=== PATIENT | male | born 1960 | race African-American/Black ===

== ENCOUNTER 2020-03-01 23:39 | Inpatient (IN) | payer MEDICAID, SELFPAY ==
[~2020-03-01] VITALS: Ht 185.4 cm; Wt 75.3 kg
[2020-03-01] MEDS ORDERED: SERT50TA PO (23:56)
[2020-03-01] MEDS ORDERED: geodon PO (23:56)
--- NOTE | 2020-03-02 00:25 | NUR ---
Pt BIB by RA[facility] frm [facility]. Pt is homeless and is currently in quarantine for being Covid19+ PUI, tested today no results yet. Pt brought in via gurney. Per paramedics, 911 was called because patient was short of breath. [facility] dmitriy reported low O2 saturation, but paramedics got 97% on RA. AO x 4. Verbally responsive. Visibly short of breath with RR: 24. Denies chest pain. Capillary refill <3. Noted with wet, non productive cough. No GI/ complaints. Ambulatory, steady gait, but expressing that he feels weak r/t his shortness of breath. Covid 19 Isolation, Fall and Safety precautions observed.
--- NOTE | 2020-03-02 00:26 | NUR ---
Dr. Gill at bedside for MSE.
[2020-03-02] MEDS ORDERED: ALBUTEROL SULFATE 8 GM HFA.AER.AD IH PRN (00:30)
[2020-03-02] MEDS ORDERED: NITROGLYCERIN 0.4 MG/TAB BOTTLE SL ONE ×2 (00:35→00:45)
[2020-03-02] MEDS ORDERED: FUROSEMIDE 40 MG/4 ML VIAL ONE (00:50)
[2020-03-02] MEDS ORDERED: FUROSEMIDE 40 MG/4 ML VIAL IV ONE (01:00)
[2020-03-02 01:01] LABS: *BILIRUBIN,URIN NEGATIVE (NEGATIVE); *COLOR,URINE YELLOW (YELLOW); *KETONES,URINE NEGATIVE (NEGATIVE); *UROBILINOGEN,URINE 0.2 E.U./dl (NORMAL); LEUKOCYTE ESTERASE ,URINE NEGATIVE (NEGATIVE); NITRITE, URINE NEGATIVE (NEGATIVE); PH,URINE 5.5 (5.0-8.0); UGLUCOSE NEGATIVE (NEGATIVE)
[2020-03-02 01:02] LABS: BASOPHILS % (AUTO) 0.6 % (0.0-2.0); EOSINOPHILS % (AUTO) 0.7 % (0.0-7.0); HEMATOCRIT 40.6 % (36.7-47.1); HEMOGLOBIN 13.5 g/dL (12.5-16.3); LYMPHOCYTES # (AUTO) 1.3 K/uL (20.0-40.0); LYMPHOCYTES % (AUTO) 18.8 % (20.5-51.5); MEAN CORPUSCULAR HEMOGLOBIN 25.9 uug (23.8-33.4); MEAN CORPUSCULAR HGB CONC 33 g/dL (32.5-36.3); MEAN CORPUSCULAR VOLUME 77.9 fL (73.0-96.2); MONOCYTES # (AUTO) 0.3 K/uL (2.0-10.0); MONOCYTES % (AUTO) 4.1 % (0.0-11.0); NEUTROPHILS # (AUTO) 5.2 K/uL (1.8-8.9); NEUTROPHILS % (AUTO) 75.8 % (38.5-71.5); PLATELET COUNT (AUTO) 322 K/uL (152-348); RED BLOOD CELL COUNT(AUTO) 5.21 MIL/uL (4.06-5.63); WHITE BLOOD COUNT (AUTO) 6.8 K/uL (3.6-10.2)
[2020-03-02 01:09] LABS: CREATININE 1.3 mg/dL (0.6-1.3); POTASSIUM 4.3 mmol/L (3.5-5.1)
[2020-03-02 01:15] LABS: *BLOOD, URINE TRACE (NEGATIVE); *CLARITY,URINE HAZY (CLEAR)
[2020-03-02 01:18] LABS: WBC,URINE 0-3 /HPF (0-3)
[2020-03-02 01:19] LABS: BACTERIA,URINE NONE SEEN /HPF (NONE SEEN); CALCIUM OXALATE CRYSTALS,UR MODERATE /HPF (NONE SEEN); SQUAMOUS EPITHELIAL CELL,UR FEW /HPF (NONE SEEN)
[2020-03-02 01:26] LABS: BILIRUBIN,TOTAL 0.4 mg/dL (0.2-1.0); TOTAL PROTEIN, SERUM 6.1 g/dL (6.4-8.2)
[2020-03-02] MEDS ORDERED: ASPIRIN 325 MG TABLET PO ONE (01:30)
[2020-03-02] MEDS ORDERED: NITROGLYCERIN OINT 1 GM PACKET TP ONE ×2 (01:30→01:37)
[2020-03-02] MEDS ORDERED: ASPIRIN 325 MG TABLET ONE (01:38)
--- NOTE | 2020-03-02 01:43 | NUR ---
Paged [facility] panel for admission. Waiting for Dr Mckeon construction or leak gang laborer for [facility] to call back.
--- NOTE | 2020-03-02 01:46 | NUR ---
Dr. Gill and Dr. Mckeon on panel call. Dr. Mckeon accepted patient to Tele Dx: CHF. Pt is also a PUI for COVID 19. Belongings list completed.
[2020-03-02] MEDS ORDERED: NITROGLYCERIN OINT 1 GM PACKET TP SCH (02:00)
[2020-03-02] MEDS ORDERED: Z GUARD REMEDY PASTE 57 GM TUBE TOP PRN (02:00)
[2020-03-02] MEDS ORDERED: ONDANSETRON 4 MG/2 ML VIAL IV PRN (02:00)
[2020-03-02] MEDS ORDERED: MAGNESIUM HYDROXIDE 30 ML LIQUID UDC PO PRN (02:00)
[2020-03-02 02:06] LABS: ABG PCO2 41.2 mmHg (35.0-45.0); ABG PH 7.383 (7.350-7.450); ABG PO2 67.2 mmHg (75.0-100.0); ABG SITE RIGHT RADIAL; ABG TOTAL HEMOGLOBIN 14.9 G/dL (13.5-18.0); COHb 1.9 % (0.5-1.5); MetHb 0.1 % (0.0-1.5); O2Hb 91.9 % (94.0-97.0); VENT MODE Nasal Cannula
[2020-03-02] MEDS ORDERED: ENOXAPARIN SODIUM 80 MG/0.8 ML DISP.SYRIN SQ ONE ×2 (02:15→02:29)
--- NOTE | 2020-03-02 02:51 | NUR ---
Pt will stay at ER until EPIC sees patient in the morning, per hospital protocols for PUI's. Provided patient with pillow and extra sheet. Offered to change patient's clothes, and provide hospital gown, but patient adamantly refused. Pt is currently semi harry's position, on O2 2LPM via NC and verbalized that he is comfortable. All due meds in ER given, and tolerated well. Pt with 1600cc amount of urine output. Pt will be kept on close monitoring at this time. Side rails up x 2. Bed locked in position. Safety/Fall/Covid [address]
--- NOTE | 2020-03-02 05:00 | NUR ---
Pt continues to sleep at this time, patient got up to urinate another 1000cc. VS and Tele monitoring continued. Latest BP: 145/98. NSR at this time, with occasional PVCs and bundle branch block. Remains at baseline cognitive level. Side rails up x 2. Changed patient into hospital gown, finally agreed to take shirt and shorts off. Kept his shoes/socks on and his boxer shorts. Also refused to replce his bedsheet. Gave patient a new blanket. No signs of distress. Will continue to monitor until ready to be moved in to room in AM.
--- NOTE | 2020-03-02 07:08 | NUR ---
Warm handoff given to Deisy QUINTERO.
--- NOTE | 2020-03-02 08:10 | NUR ---
transfered pt to floor in stable condition. hospital bf tray at bedside. vss. pt transfered with hospital covid-19 precautions.
[2020-03-02 08:34] VITALS: BP 143/101
[2020-03-02] MEDS ORDERED: FUROSEMIDE 40 MG/4 ML VIAL IV SCH (09:00)
[2020-03-02] MEDS: SERTRALINE HCL 50 MG TABLET PO SCH (09:25)
--- NOTE | 2020-03-02 10:10 | NUR ---
Patient admitted around 920am from ER in stable condition. Report given by LEON Olivas. Patient alert and oriented x4 under telemetry unit with EKG monitoring. no SOB noted. On heplock right forearm G20. DX: CHF, PUI. Patient afebrile 98.3"F, BP 142/101. cough once in a while noted. Patient is ambulatory. not in distress. Patient on pain management PRN. Complaint of left arm pain scale 8 out of 10. [place] PRN given. will continue monitor
[2020-03-02] MEDS: HYDROCODONE/APAP 5-325MG TABLET PO PRN (11:40)
[2020-03-02 12:00] VITALS: BP 137/93
[2020-03-02 13:30] VITALS: BP 142/101
[2020-03-02] MEDS: NITROGLYCERIN OINT 1 GM PACKET TP SCH ×2 (13:32→21:05)
[2020-03-02 16:00] VITALS: BP 133/73
[2020-03-02] MEDS: ACETAMINOPHEN 325 MG TABLET PO PRN (16:18)
--- NOTE | 2020-03-02 20:00 | NUR ---
Received patient awake and alert in bed, A/Ox4. No complaints of pain or SOB at this time. Patient on room air saturating at 100%. Heplock on the right AC is intact and patent. On droplet/contact precautions for PUI COVID. Vitals WNL. Safety measures initiated. Bed is low and locked, call light within reach. Will continue to monitor.
[2020-03-02 20:30] VITALS: BP 144/86
[2020-03-02] MEDS: FUROSEMIDE 20 MG/2 ML VIAL IV SCH (20:32)
[2020-03-03] VITALS: BP 130/54
[2020-03-03] MEDS: ACETAMINOPHEN 325 MG TABLET PO PRN ×3 (03:26→20:46)
[2020-03-03 04:30] VITALS: BP 156/100
[2020-03-03] MEDS: PANTOPRAZOLE SODIUM 40 MG TABLET.DR PO SCH (06:17)
[2020-03-03] MEDS: NITROGLYCERIN OINT 1 GM PACKET TP SCH ×4 (06:17→22:16)
[2020-03-03 06:20] LABS: BASOPHILS # (AUTO) 0.1 K/uL (0.0-8.0); BASOPHILS % (AUTO) 0.8 % (0.0-2.0); EOSINOPHILS # (AUTO) 0.2 K/uL (0.0-0.7); EOSINOPHILS % (AUTO) 2.8 % (0.0-7.0); HEMATOCRIT 40.9 % (36.7-47.1); HEMOGLOBIN 13.6 g/dL (12.5-16.3); LYMPHOCYTES # (AUTO) 2.2 K/uL (20.0-40.0); LYMPHOCYTES % (AUTO) 32.3 % (20.5-51.5); MEAN CORPUSCULAR HEMOGLOBIN 25.8 uug (23.8-33.4); MEAN CORPUSCULAR HGB CONC 33 g/dL (32.5-36.3); MEAN CORPUSCULAR VOLUME 77.3 fL (73.0-96.2); MONOCYTES # (AUTO) 0.6 K/uL (2.0-10.0); MONOCYTES % (AUTO) 8.3 % (0.0-11.0); NEUTROPHILS # (AUTO) 3.9 K/uL (1.8-8.9); NEUTROPHILS % (AUTO) 55.8 % (38.5-71.5); PLATELET COUNT (AUTO) 297 K/uL (152-348); RED BLOOD CELL COUNT(AUTO) 5.29 MIL/uL (4.06-5.63)
[2020-03-03 06:40] LABS: CREATININE 1.3 mg/dL (0.6-1.3); MAGNESIUM 1.7 mg/dL (1.8-2.4); PHOSPHOROUS 3.7 mg/dL (2.5-4.9); POTASSIUM 4.2 mmol/L (3.5-5.1)
[2020-03-03] MEDS: FUROSEMIDE 20 MG/2 ML VIAL IV SCH ×2 (08:11→20:46)
[2020-03-03] MEDS: SERTRALINE HCL 50 MG TABLET PO SCH (08:11)
[2020-03-03] MEDS: ASPIRIN EC 81 MG TABLET.DR PO SCH (08:12)
[2020-03-03] MEDS: HYDROCODONE/APAP 5-325MG TABLET PO PRN (09:01)
[2020-03-03] MEDS: METOPROLOL TARTRATE 25 MG TABLET PO SCH ×2 (09:56→20:57)
[2020-03-03] MEDS: ENOXAPARIN SODIUM 40 MG/0.4 ML DISP.SYRIN SQ SCH (10:00)
[2020-03-03 11:49] VITALS: BP 139/91
[2020-03-03] MEDS ORDERED: MAGNESIUM SULFATE/D5W 100 ML IV SCH (12:00)
[2020-03-03] MEDS ORDERED: MAGNESIUM OXIDE 400 MG TABLET PO ONE (12:00)
[2020-03-03 16:00] VITALS: BP 108/62
--- NOTE | 2020-03-03 16:01 | NUR ---
patient is alert, oriented x4, no sob, resp even nonlabored,skin warm and dry to touch, no distress noted
[2020-03-03] MEDS ORDERED: ALBUTEROL SULFATE 2.5 MG/3 ML NEBU NEB PRN (16:45)
--- NOTE | 2020-03-03 19:00 | NUR ---
Patient in bed, awake alertx4. Patient denies any acute distress or pain. Patient denies any chest pain. Patient's IV is intact and patent. Patient's vitals are stable. Safety measures in place. Bed low and locked in position. Call light within reach. Will continue with the plan of care.
[2020-03-03 20:06] VITALS: BP 121/70
--- NOTE | 2020-03-03 22:00 | NUR ---
Patient denies any chest pain. Will continue to monitor
--- NOTE | 2020-03-03 22:00 | NUR ---
Patient's Nitrobid was not given d/t BP of 103/64. Charge nurse aware. Will continue to monitor
[2020-03-04 00:06] VITALS: BP 123/80
[2020-03-04 04:06] VITALS: BP 18/84
[2020-03-04] MEDS: ACETAMINOPHEN 325 MG TABLET PO PRN (05:06)
[2020-03-04] MEDS: NITROGLYCERIN OINT 1 GM PACKET TP SCH (05:12)
[2020-03-04] MEDS: PANTOPRAZOLE SODIUM 40 MG TABLET.DR PO SCH (06:23)
--- NOTE | 2020-03-04 06:28 | NUR ---
Patient slept throughout the night. Patient is awake and denies any acute distress or pain at this time. Sinus Rhythm, 75 on Tele monitor. Patient had episodes of non-productive cough during my shift, otherwise patients vitals are stable. Prescribed medications were given, patient was compliant. Comfort care and needs attended. Safety measures in place. Will endorse to the oncoming nurse accordingly.
[2020-03-04 06:47] LABS: BASOPHILS # (AUTO) 0.1 K/uL (0.0-8.0); BASOPHILS % (AUTO) 0.7 % (0.0-2.0); EOSINOPHILS # (AUTO) 0.2 K/uL (0.0-0.7); EOSINOPHILS % (AUTO) 2.8 % (0.0-7.0); HEMATOCRIT 44.4 % (36.7-47.1); HEMOGLOBIN 14.7 g/dL (12.5-16.3); LYMPHOCYTES # (AUTO) 2.5 K/uL (20.0-40.0); LYMPHOCYTES % (AUTO) 32.4 % (20.5-51.5); MEAN CORPUSCULAR HEMOGLOBIN 25.8 uug (23.8-33.4); MEAN CORPUSCULAR HGB CONC 33 g/dL (32.5-36.3); MEAN CORPUSCULAR VOLUME 78.1 fL (73.0-96.2); MONOCYTES # (AUTO) 0.6 K/uL (2.0-10.0); MONOCYTES % (AUTO) 8.2 % (0.0-11.0); NEUTROPHILS # (AUTO) 4.4 K/uL (1.8-8.9); NEUTROPHILS % (AUTO) 55.9 % (38.5-71.5); PLATELET COUNT (AUTO) 335 K/uL (152-348); RED BLOOD CELL COUNT(AUTO) 5.69 MIL/uL (4.06-5.63); WHITE BLOOD COUNT (AUTO) 7.8 K/uL (3.6-10.2)
[2020-03-04 07:17] LABS: THYROID STIMULATING HORMONE 1.622 mIU/mL (0.358-3.740)
--- NOTE | 2020-03-04 08:00 | NUR ---
Received patient sitting at bedside awake alert and oriented times 4. Noted with on and off productive cough, unable to expectorate. Continue with cardiac monitoring. Afebrile and patient is negative for COVID as of 03/03 report.
[2020-03-04 08:14] LABS: CREATININE 1.5 mg/dL (0.6-1.3); POTASSIUM 4.7 mmol/L (3.5-5.1)
[2020-03-04 08:15] LABS: BILIRUBIN,TOTAL 0.3 mg/dL (0.2-1.0); PHOSPHOROUS 3.5 mg/dL (2.5-4.9)
[2020-03-04] MEDS: SERTRALINE HCL 50 MG TABLET PO SCH (08:35)
[2020-03-04] MEDS: ASPIRIN EC 81 MG TABLET.DR PO SCH (08:35)
[2020-03-04] MEDS: METOPROLOL TARTRATE 25 MG TABLET PO SCH ×2 (08:35→20:26)
[2020-03-04] MEDS: FUROSEMIDE 20 MG/2 ML VIAL IV SCH ×2 (08:35→20:26)
[2020-03-04] MEDS: ENOXAPARIN SODIUM 40 MG/0.4 ML DISP.SYRIN SQ SCH (08:36)
[2020-03-04] MEDS: levoFLOXacin 500 MG/D5W 500 MG in PREMIXED 1 EACH IV SCH (08:50)
[2020-03-04 11:45] VITALS: BP 125/80
[2020-03-04 16:34] VITALS: BP 127/77
[2020-03-04 20:00] VITALS: BP 136/88
--- NOTE | 2020-03-04 21:41 | NUR ---
Patient in bed awake, alertx4. Patient denies any acute distress or pain. Patient is on tele, Sinus Rhythm 67. Patient has on and off non productive cough, otherwise vitals are stable. Safety measures in place. Will continue with the plan of care.
[2020-03-05] VITALS: BP 116/75
--- NOTE | 2020-03-05 01:59 | NUR ---
Patient refused tele monitoring. Mary Ellen Russo NP aware. Will continue to monitor
[2020-03-05 04:00] VITALS: BP 116/82
[2020-03-05] MEDS: PANTOPRAZOLE SODIUM 40 MG TABLET.DR PO SCH (06:08)
--- NOTE | 2020-03-05 06:50 | NUR ---
Patient slept throughout the night. Patient is awake and denies any SOB or pain. Patient was cooperative. Few episodes of non-productive cough noted during my shift. Patient refused tele monitoring. ROSEMARY Hyde is aware. VS stable. Comfort care and needs attended. Safety measures in place. Will endorse to the oncoming nurse accordingly.
[2020-03-05] MEDS: SERTRALINE HCL 50 MG TABLET PO SCH (08:22)
[2020-03-05] MEDS: ASPIRIN EC 81 MG TABLET.DR PO SCH (08:22)
[2020-03-05] MEDS: METOPROLOL TARTRATE 25 MG TABLET PO SCH (08:22)
[2020-03-05] MEDS: ENOXAPARIN SODIUM 40 MG/0.4 ML DISP.SYRIN SQ SCH (08:24)
[2020-03-05] MEDS: FUROSEMIDE 20 MG/2 ML VIAL IV SCH (08:26)
[2020-03-05] MEDS: levoFLOXacin 500 MG/D5W 500 MG in PREMIXED 1 EACH IV SCH (08:26)
[2020-03-05 12:00] VITALS: BP 107/58
[2020-03-05] MEDS: LOSARTAN POTASSIUM 25 MG TABLET PO SCH (15:32)
[2020-03-05 16:00] VITALS: BP 112/60
--- NOTE | 2020-03-05 20:00 | NUR ---
PATIENT AWAKE IN BED. DENIES PAIN. VSS. H/L INTACT AND PATENT. DENIES SOB. NO RESP. DISTRESS NOTED. CALL LIGHT IN REACH. ALL NEEDS ATTENDED. WILL CONTINUE TO MONITOR AND ASSESS.
[2020-03-05] MEDS: FUROSEMIDE 40 MG/4 ML VIAL IV SCH (20:24)
[2020-03-05] MEDS ORDERED: ATORVASTATIN 20 MG TABLET PO SCH (21:00)
[2020-03-05] MEDS ORDERED: FUROSEMIDE 20 MG/2 ML VIAL IV SCH (21:00)
[2020-03-05 21:24] VITALS: BP 109/58
[2020-03-06 04:31] VITALS: BP 128/83
[2020-03-06] MEDS: PANTOPRAZOLE SODIUM 40 MG TABLET.DR PO SCH (06:07)
--- NOTE | 2020-03-06 06:18 | NUR ---
PATIENT AWAKE ALERT ORIENTED, NO SOB NO CHEST PAIN. PATIENT HAS NO COMPLAIN OF PAIN, PATIENT VOIDING FREELY, SLEPT MOST OF THE NIGHT, CONT TO MONITOR.
[2020-03-06] MEDS: FUROSEMIDE 40 MG/4 ML VIAL IV SCH (08:01)
[2020-03-06] MEDS: levoFLOXacin 500 MG/D5W 500 MG in PREMIXED 1 EACH IV SCH (08:01)
[2020-03-06 08:09] VITALS: BP 128/83
[2020-03-06] MEDS: LOSARTAN POTASSIUM 25 MG TABLET PO SCH (08:09)
[2020-03-06] MEDS: ASPIRIN EC 81 MG TABLET.DR PO SCH (08:09)
[2020-03-06] MEDS: SERTRALINE HCL 50 MG TABLET PO SCH (08:09)
[2020-03-06] MEDS: ENOXAPARIN SODIUM 40 MG/0.4 ML DISP.SYRIN SQ SCH (08:10)
[2020-03-06] MEDS ORDERED: METOPROLOL SUCCINATE XL 50 MG TAB.SR.24H PO SCH (09:00)
[2020-03-06 10:15] LABS: BASOPHILS # (AUTO) 0.1 K/uL (0.0-8.0); BASOPHILS % (AUTO) 1.2 % (0.0-2.0); EOSINOPHILS # (AUTO) 0.1 K/uL (0.0-0.7); EOSINOPHILS % (AUTO) 1.7 % (0.0-7.0); HEMATOCRIT 44.3 % (36.7-47.1); HEMOGLOBIN 14.9 g/dL (12.5-16.3); LYMPHOCYTES % (AUTO) 31.7 % (20.5-51.5); MEAN CORPUSCULAR HEMOGLOBIN 25.8 uug (23.8-33.4); MEAN CORPUSCULAR HGB CONC 34 g/dL (32.5-36.3); MONOCYTES # (AUTO) 0.5 K/uL (2.0-10.0); NEUTROPHILS # (AUTO) 3.7 K/uL (1.8-8.9); NEUTROPHILS % (AUTO) 57.4 % (38.5-71.5); PLATELET COUNT (AUTO) 311 K/uL (152-348); RED BLOOD CELL COUNT(AUTO) 5.75 MIL/uL (4.06-5.63); WHITE BLOOD COUNT (AUTO) 6.4 K/uL (3.6-10.2)
[2020-03-06 10:31] LABS: BILIRUBIN,TOTAL 0.4 mg/dL (0.2-1.0); CREATININE 1.5 mg/dL (0.6-1.3); POTASSIUM 4.1 mmol/L (3.5-5.1); TOTAL PROTEIN, SERUM 6.5 g/dL (6.4-8.2)
[2020-03-06] MEDS ORDERED: ASPI-618 PO (10:40)
[2020-03-06] MEDS ORDERED: METO50TA16 PO (10:40)
--- NOTE | 2020-03-06 11:14 | NUR ---
dc orders received noted and carried out,dc heplock per orders,dc instruction and tap card given to the pt,pt left the facility via walking from the hospital in proper clothing in stable condition.pt is [id number]
[2020-03-07] MEDS ORDERED: FUROSEMIDE 40 MG TABLET PO SCH (09:00)
== END 2020-03-06 11:10 | disposition home or self-care (01) | DRG 280 ==
LOC: ER 23:46 → TELE3 03-02 08:19 → MEDSURG3 03-03 17:28 → TELE3 03-03 18:34 → MEDSURG3 03-05 10:10
PROVIDERS: ADMIT Internal Medicine; ATTEND Internal Medicine
DX: I11.0 Hypertensive heart disease with heart failure (principal); N17.0 Acute kidney failure with tubular necrosis; I21.4 Non-ST elevation (NSTEMI) myocardial infarction; J15.9 Unspecified bacterial pneumonia; E44.0 Moderate protein-calorie malnutrition; M62.82 Rhabdomyolysis; Z59.0 Homelessness; E83.42 Hypomagnesemia; I50.23 Acute on chronic systolic (congestive) heart failure; I42.9 Cardiomyopathy, unspecified; R73.03 Prediabetes; F15.10 Other stimulant abuse, uncomplicated; J40 Bronchitis, not specified as acute or chronic; F17.210 Nicotine dependence, cigarettes, uncomplicated
CPT/HCPCS: 36415; 36600; 70030-TC; 71045; 83550; 83605; 83615; 83735; 84100; 84443; 85025; 85730; 86140; 87040; 87086; 93005; 93307; A4663; G0378; J1650; J1940; J1956; J3535; J7030; J7050; U0003-CS